=== PATIENT | female | born 1955 | race Caucasian/White ===

== ENCOUNTER 2019-01-23 15:01 | Emergency (ER) | payer SELFPAY ==
[~2019-01-23] VITALS: Ht 157.5 cm; Wt 100.0 kg
[2019-01-23] MEDS ORDERED: SINGULAIR10 MG PO ×2 (15:46→17:45)
[2019-01-23] MEDS ORDERED: PROAIR HFA108 MCG/AC IN (15:47)
[2019-01-23] MEDS ORDERED: SYMBICORT1 AE1 IN (15:49)
[2019-01-23] MEDS ORDERED: ALBUTEROL SUL0.083 % IN (17:45)
[2019-01-23 18:10] VITALS: BP 160/80
== END 2019-01-23 18:10 | disposition home or self-care (01) | DRG 203 ==
LOC: ED 15:01
DX: J45.909 Unspecified asthma, uncomplicated (principal); T48.6X6A Underdosing of antiasthmatics, initial encounter; Z91.128 Patient's intentional underdosing of medication regimen for other reason